=== PATIENT | female | born 1955 | race Caucasian/White ===

== ENCOUNTER 2016-10-09 13:39 | Inpatient (IN) | payer OTHER ==
[~2016-10-09] VITALS: Ht 170.2 cm; Wt 71.8 kg
[2016-10-09] MEDS ORDERED: MORPHINE 4 MG/ML 1ML SYRINGE IV ONE (14:00)
[2016-10-09] MEDS ORDERED: ONDANSETRON 4MG/2ML VIAL (J2405) IV ONE (14:00)
[2016-10-09] MEDS ORDERED: NS 1,000 ML IV ONE (14:00)
[2016-10-09] MEDS ORDERED: CALC500T36 PO (14:02)
[2016-10-09] MEDS ORDERED: VITATAB74 PO (14:02)
[2016-10-09] MEDS ORDERED: VITA100T20 PO (14:02)
[2016-10-09] MEDS ORDERED: PROZ40CA PO (14:02)
[2016-10-09 14:06] LABS: BASO % 0.4 % (0.0-1.0); EOS # 0.1 K/mm3 (0.0-0.50); EOS % 2.3 % (0.0-3.0); LARGE UNSTAINED CELL # 0.1 K/mm3 (0.0-0.4); LARGE UNSTAINED CELL % 2.2 % (0.0-4.0); LYMPH # 1.2 K/mm3 (1.5-4.5); LYMPH % 20.6 % (24.0-44.0); MEAN CORPUSCULAR HEMOGLOBIN 32.6 pg (27.0-33.0); MEAN CORPUSCULAR HGB CONC 34.4 g/dl (32.0-36.5); MEAN CORPUSCULAR VOLUME 94.9 fl (80.0-96.0); MONO # 0.2 K/mm3 (0.0-0.8); MONO % 4.1 % (0.0-5.0); NEUTROPHILS # 3.6 K/mm3 (1.8-7.7); NEUTROPHILS % 70.4 % (36.0-66.0); PLATELET COUNT, AUTOMATED 259 k/mm3 (150-450); RED CELL DISTRIBUTION WIDTH 12.1 % (11.5-14.5); WHITE BLOOD COUNT 5.1 K/mm3 (4.0-10.0)
[2016-10-09 14:10] LABS: INR 0.91
[2016-10-09] MEDS ORDERED: VITA-122 PO (14:34)
[2016-10-09] MEDS ORDERED: CALC600T31 PO (14:34)
[2016-10-09] MEDS ORDERED: ALEV220T22 PO (14:34)
[2016-10-09 14:35] LABS: ALBUMIN 3.9 GM/DL (3.2-5.2); ALBUMIN/GLOBULIN RATIO 1.34 (1.00-1.93); ALKALINE PHOSPHATASE 79 U/L (45-117); ALT/SGPT 21 U/L (12-78); ANION GAP 8 MEQ/L (8-16); AST/SGOT 17 U/L (15-37); BILIRUBIN,DIRECT 0.1 MG/DL (0.0-0.2); BILIRUBIN,TOTAL 0.5 MG/DL (0.2-1.0); BLOOD UREA NITROGEN 13 MG/DL (7-18); CARBON DIOXIDE LEVEL 27 MEQ/L (21-32); CHLORIDE LEVEL 105 MEQ/L (98-107); CREATININE FOR GFR 0.74 MG/DL (0.55-1.02); GLOMERULAR FILTRATION RATE > 60.0 (>45); GLUCOSE, FASTING 119 MG/DL (80-110); POTASSIUM SERUM 3.9 MEQ/L (3.5-5.1); SODIUM LEVEL 140 MEQ/L (136-145); TOTAL PROTEIN 6.8 GM/DL (6.4-8.2)
--- NOTE | 2016-10-09 14:56 | REP ---
REASON: Trauma. COMPARISON: None. There is a comminuted proximal femoral fracture. There are degenerative changes seen involving the hips. Signed by Travis Tejada DO 10/09/2016 03:14 P
--- NOTE | 2016-10-09 14:57 | REP ---
REASON: Trauma. There is a comminuted proximal right femoral fracture. There are no additional fractures involving the right femur. Signed by Travis Tejada DO 10/09/2016 03:14 P
--- NOTE | 2016-10-09 14:59 | REP ---
REASON: Pain after trauma. AP and cross table lateral views were obtained. There is a comminuted proximal femoral fracture. There are degenerative changes. Signed by Travis Tejada DO 10/09/2016 03:14 P
--- NOTE | 2016-10-09 15:01 | REP ---
REASON: Pain after trauma. PRIORS: None. FINDINGS: The technique utilized in obtaining the radiograph has magnified the cardiac silhouette and accentuated the interstitial markings. The superior mediastinal structures are midline. The cardiac silhouette is unremarkable in size, shape, and position. The diaphragmatic surfaces of the lungs are regular, and the costophrenic angles are clear. The pulmonary cardenas are clear. The imaged osseous structures are intact. IMPRESSION: There is no acute cardiopulmonary disease. Signed by Travis Tejada DO 10/09/2016 03:14 P
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
[2016-10-09] MEDS ORDERED: MORPHINE 2 MG/ML 1ML SYRINGE As Ordered ONE (17:37)
[2016-10-09] MEDS ORDERED: ACETAMINOPHEN TAB 650MG DOSE (2X325MG) PO PRN (17:45)
[2016-10-09] MEDS ORDERED: MORPHINE 2 MG/ML 1ML SYRINGE IV PRN (17:45)
[2016-10-09] MEDS ORDERED: ONDANSETRON 4MG/2ML VIAL (J2405) IV PRN (17:45)
[2016-10-09] MEDS ORDERED: PERCOCET 5MG/325MG TAB PO PRN (17:45)
[2016-10-09] MEDS ORDERED: NS 1,000 ML IV SCH (18:00)
--- NOTE | 2016-10-09 19:34 | ECGEPIP ---
Stationary ECG Study 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
[2016-10-09 20:00] VITALS: BP 140/63
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
[2016-10-09] MEDS ORDERED: PANTOPRAZOLE 40MG INJ (PROTONIX) (C9113) IV SCH (21:00)
[2016-10-09] MEDS ORDERED: ceFAZolin 1GM INJ (J0690) As Ordered ONE (22:54)
[2016-10-09] MEDS ORDERED: PROPOFOL 200 MG/20 ML VIAL As Ordered ONE (23:08)
[2016-10-09] MEDS ORDERED: BUPIVACAINE HCL 0.5% 30 ML VIAL As Ordered ONE (23:08)
[2016-10-09] MEDS ORDERED: MIDAZOLAM INJ 2 MG/2 ML VIAL (J2250) As Ordered ONE (23:08)
[2016-10-09] MEDS ORDERED: fentaNYL 100 MCG/2 ML INJECTION (J3010) As Ordered ONE (23:08)
[2016-10-09] MEDS ORDERED: ONDANSETRON 4MG/2ML VIAL (J2405) As Ordered ONE (23:08)
[2016-10-09] MEDS ORDERED: KETAMINE HCL 200 MG/20 ML VIAL As Ordered ONE (23:08)
[2016-10-09] MEDS ORDERED: LIDOCAINE 2% INJ 100 MG/5 ML SDV (FOR ANES.) As Ordered ONE (23:09)
[2016-10-09] MEDS ORDERED: ceFAZolin 2 GM/D5W 50 ML IV BAG (J0690) As Ordered ONE (23:16)
[2016-10-10] MEDS ORDERED: PHENYLephrine HCL 500 MCG/5 ML (100MCG/ML) SYRINGE (J2370) As Ordered ONE (00:21)
[2016-10-10] MEDS ORDERED: PERCOCET 5MG/325MG TAB PO PRN ×3 (00:45→01:00)
[2016-10-10] MEDS ORDERED: ONDANSETRON 4MG/2ML VIAL (J2405) IV PRN (01:00)
[2016-10-10] MEDS ORDERED: fentaNYL 100 MCG/2 ML INJECTION (J3010) IV PRN (01:00)
[2016-10-10] MEDS ORDERED: LR 1,000 ML IV SCH (01:00)
[2016-10-10] MEDS ORDERED: METOCLOPRAMIDE INJ 10MG/2ML VIAL (J2765) IV PRN (01:00)
[2016-10-10] MEDS ORDERED: MEPERIDINE INJ 25 MG/ML VIAL (J2175) IV PRN (01:00)
[2016-10-10 01:30] VITALS: BP 145/66
[2016-10-10] MEDS: KETOROLAC 30 MG/ML VIAL (J1885) IV SCH ×2 (01:49→06:38)
[2016-10-10 02:00] VITALS: BP 140/68
[2016-10-10 03:00] VITALS: BP 116/55
[2016-10-10 04:00] VITALS: BP 101/55
[2016-10-10 05:00] VITALS: BP 106/52
[2016-10-10 06:00] VITALS: BP 109/53
[2016-10-10 06:01] LABS: MEAN CORPUSCULAR HEMOGLOBIN 33.3 pg (27.0-33.0); MEAN CORPUSCULAR VOLUME 98.1 fl (80.0-96.0); WHITE BLOOD COUNT 6.2 K/mm3 (4.0-10.0)
[2016-10-10 06:11] LABS: ANION GAP 8 MEQ/L (8-16); BLOOD UREA NITROGEN 11 MG/DL (7-18); CARBON DIOXIDE LEVEL 26 MEQ/L (21-32); CHLORIDE LEVEL 107 MEQ/L (98-107); CREATININE FOR GFR 0.84 MG/DL (0.55-1.02); GLOMERULAR FILTRATION RATE > 60.0 (>45); GLUCOSE, FASTING 149 MG/DL (80-110); MAGNESIUM LEVEL 1.9 MG/DL (1.8-2.4); POTASSIUM SERUM 3.8 MEQ/L (3.5-5.1); SODIUM LEVEL 141 MEQ/L (136-145)
[2016-10-10] MEDS ORDERED: LOVE1INJ SC (08:32)
[2016-10-10] MEDS ORDERED: PERC5TAB12 PO (08:32)
[2016-10-10] MEDS ORDERED: ENOXAPARIN 40 MG/0.4 ML SYRINGE (J1650) SC SCH (09:00)
[2016-10-10] MEDS ORDERED: VITAMIN D 1,000 INTERNATIONAL UNITS TABLET PO SCH (09:00)
[2016-10-10] MEDS ORDERED: MIRALAX *UNIT DOSE* 17GM PACKET PO SCH (09:00)
[2016-10-10] MEDS ORDERED: MOM 30ML SUSPENSION UDC PO SCH (09:00)
[2016-10-10] MEDS ORDERED: FLUoxetine 20 MG CAP PO SCH (09:00)
--- NOTE | 2016-10-10 10:18 | REP ---
Clinical: Fracture fixation. Technique: Intraoperative fluoroscopic evaluation. Findings: Multiple intraoperative fluoroscopic images demonstrate the patient to be status post intramedullary fabricio placement for intertrochanteric femoral neck fracture. Satisfactory fixation and reduction noted. Total fluoroscopic time 2 minutes 30 seconds. Impression: Status post open reduction and fixation for intertrochanteric right hip fracture. Signed by Geovanny Tejada MD 10/10/2016 04:14 A
--- NOTE | 2016-10-10 11:26 | RO ---
DATE OF PROCEDURE: 10/10/2016 PREOPERATIVE DIAGNOSIS: Right proximal femur intertrochanteric fracture. POSTOPERATIVE DIAGNOSIS: Right proximal femur intertrochanteric fracture. PROCEDURE PERFORMED: Right hip cephalomedullary nail fixation. SURGEON: Marco A Ranadll MD [employer] COACH: ALISA Brower ANESTHESIA PROVIDER: Dr. Drew ANESTHESIA GIVEN: Spinal anesthesia ANTIBIOTICS: 2 grams Ancef given within 1 hour of incision IMPLANT USED: Synthes TFNA 11 mm x 200 mm nail with a 90 mm Helical blade and 5 mm x 32 mm interlocking screw. COMPLICATIONS: None. ESTIMATED BLOOD LOSS: 100 mL. MATERIALS SENT TO LABORATORY: None. INDICATION FOR PROCEDURE: Carla Choi is a 61-year-old female who was here on vacation visiting family. Lives in the [facility] area. Sustained a mechanical fall from standing height, resulting in a right proximal femur fracture. The patient is normally a community ambulator at baseline and otherwise very physically active. Given the nature of the injury, I recommended surgical treatment prior to the patient's return home. I counseled her on the risks, benefits, indications, and alternatives of operative versus nonoperative treatment. The patient and the family all elected to proceed with right hip cephalomedullary nail fixation. The patient understands that I will be her operating surgeon, but she will need to arrange followup closer to her home. I told the patient that I will be able to arrange followup for her in [place], if necessary. The patient expressed understanding and provided informed consent for right hip open versus closed reduction and internal fixation. INTRAOPERATIVE FINDINGS: Unstable intertrochanteric femur fracture that was stable after fixation. DESCRIPTION OF PROCEDURE: The patient was positively identified in the preoperative holding area where the surgical site was marked. She was then brought to the operating room where she was given spinal anesthesia. She was then positioned supine on the fracture table with all bony prominences appropriately padded. Sequential compression device (SCD) was placed on the nonoperative extremity for deep venous thrombosis (DVT) prophylaxis. I took picker machine operator fluoroscopic images to obtain a closed reduction. She was then prepped and draped in the usual sterile fashion. A final time-out was performed. I made a 3 cm incision about three fingerbreadths proximal to the tip of the greater trochanter. I dissected through skin and subcutaneous tissue, and I introduced the 3.2 mm starting guidepin in the tip of the greater trochanter. There was some posterior sag of the distal fragment; therefore, I made an accessory lateral incision to introduce a periosteal elevator and a bone hook to obtain and maintain reduction. After this was obtained, the starting guidepin was then introduced to the level of the level of the lesser trochanter, and this was followed by the opening reamer. After the opening reamer, the patient was noted to have a relatively tight femoral canal, given her age and [place] A type bone. Therefore, I passed a 12 mm reamer down the shaft of the femur to aid in nail placement after placement of a guidewire. I then introduced the 11 x 200 mm nail. This was brought to an appropriate depth using fluoroscopic guidance, the fracture was noted to be near anatomic alignment after placement of the nail. I then used the second 3.2 mm guidepin in the femoral neck using the guide for placement of the Helical blade. The guidepin was center-center on the femoral neck on AP and lateral imaging. It was then measured to a depth of 90 mm. The drill for the Helical blade was introduced to a depth of 90 mm. The blade was then placed in standard fashion. This was then followed by locking the nail to create a fixed angle construct, given the reverse oblique nature of the fracture. After this, the 32 mm x 5 mm interlocking screw was placed in the distal aspect of the nail. After all hardware was placed, final fluoroscopic images were taken. I confirmed there was no penetration of the blade through the femoral head with sequential imaging. The wounds were then thoroughly irrigated with normal saline and closed in layers with #2-0 Vicryl for the subcutaneous layer and sera for the skin. Sterile dressings were applied. This ended the procedure. I was present and scrubbed in for all critical portions of the case. POSTOPERATIVE PLAN: The patient will be weightbearing as tolerated in the right lower extremity. She will undergo physical therapy tomorrow. Lovenox for DVT prophylaxis, which she will do for at least 4 weeks. She will be discharged when criteria met. I will arrange for the patient to followup with me if she remains in town. However, she will likely travel home prior to her followup appointment. MAINOR
--- NOTE | 2016-10-10 21:14 | REP ---
Right hip two views: 10/10/2016: Comparison: Intraoperative C-arm images right hip 10/09/2016, acute fracture series 10/09/2016. Findings: The proximal femoral fracture of the subtrochanteric region extending into the lesser trochanter with at least three major fragments is reduced with ORIF showing a blade paddle focus and short intramedullary fabricio with single screw transfixing it into the proximal femoral shaft. Alignment is essentially anatomic. There are degenerative changes of that hip. Skin sera and other postoperative changes are noted from this immediate postop exam. Signed by Cheng Heredia MD 10/10/2016 09:36 P
--- NOTE | 2016-10-11 10:31 | DSES ---
DATE OF ADMISSION: 10/09/2016 DATE OF DISCHARGE: 10/10/2016 DISCHARGE DIAGNOSIS: 1. Right proximal femur intertrochanteric fracture. SECONDARY DIAGNOSIS: 1. Mechanical fall. 2. Calcium vitamin D deficiency 3. B12 deficiency 4. Mood disorder. HOSPITAL COURSE: The patient is a 61-year-old female who has suffered a mechanical fall while trying to exit her car. She landed on her right hip. She was seen by Dr. Randall of orthopedic surgery and taken to the operating room shortly admission overnight 7:30:17. The patient tolerated operating repair of her femur quite well. She did have some anemia following procedure as was expected. She was seen the next day by physical therapy, who did clear her. She is from [place] and wishes to followup there. SUBJECTIVE: This morning the patient reports that she feels well and has no complaints. She denies any chest pain, shortness of breath, fevers, chills, nausea, vomiting or diarrhea. She was ready to go home. OBJECTIVE: VITAL SIGNS: Temperature 98.5, pulse 59, respiratory rate, blood pressure 109/53, oxygen saturation 96% on room air. GENERAL: She is a pleasant, female lying flat in bed in no acute distress. HEENT: Cranial nerves II/XII intact are grossly intact. She has moist mucous membranes. No elevation of central venous pressure (CVP). CARDIOVASCULAR EXAM: S1, S2 regular. RESPIRATORY EXAM: Clear. ABDOMINAL EXAM: Benign. EXTREMITIES: Her dressing is clean, dry and intact. Extremities, no clubbing, cyanosis or edema. LABORATORY STUDY: White blood count (WBC) 6.2, hemoglobin 9.4, platelet count 188. Chemistry panel: Sodium 141, potassium 3.8, chloride 107, bicarbonate 26, BUN 11, creatine 0.8. 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 PROBLEMS: 1. Femur fracture postoperative day 1. The patient tolerated the procedure well. She has been cleared by physical therapy. She wishes to go home. Will arrange for her to followup in [place] as she is going back; she is only here visit. She has been discharged with Lovenox daily for four weeks and Percocet for pain as per orthopedic surgery. They have cleared her for discharge. 2. Calcium vitamin D deficiency. Continue with supplementation. She should likely be seen regarding osteoporosis for a likely fragility fracture by her primary care provider in [place]. 3. B12 deficiency. Continue supplementation. 4. Mood disorder. Continue with fluoxetine. DISPOSITION: The patient is being discharged home to the care of daughter, who is a physical therapist. She should followup with an orthopedic surgeon in [place]. Orthopedic surgery will arrange for transfer of records. She is weight bearing as tolerated. Diet is as tolerated. Optifoam to provide additional one for dressing changes in 7 days. She is to shower. MEDICATIONS AT THE TIME OF DISCHARGE: - Lovenox 40 mg subcutaneously daily for 28 days - Percocet 5-325 mg one to two tabs every 4 hours as needed for pain, not to exceed 8 per day, 40 tablets. - calcium 600 mg daily - vitamin D 1000 units daily - b12 daily - fluoxetine 40 mg daily Greater than 30 minutes spent organizing disposition.
== END 2016-10-10 12:00 | disposition home or self-care (01) | DRG 482 ==
LOC: EDBD 13:39 → M ED 13:39 → M SDC 15:11 → M MS5PR 17:31 → M SDC 20:00 → M MS5PR 20:00 → M SDC 10-10 12:00
PROVIDERS: ADMIT Internal Medicine; ATTEND Internal Medicine
PROC: 0QS604Z Reposition Right Upper Femur with Internal Fixation Device, Open Approach (ICD-10-PCS; principal; 2016-10-09 21:00)
DX: S72.141A Displaced intertrochanteric fracture of right femur, initial encounter for closed fracture (principal); W18.09XA Striking against other object with subsequent fall, initial encounter; Y92.481 Parking lot as the place of occurrence of the external cause; E53.8 Deficiency of other specified B group vitamins; F39 Unspecified mood [affective] disorder; E55.9 Vitamin D deficiency, unspecified; D64.9 Anemia, unspecified; Z79.899 Other long term (current) drug therapy; Y99.8 Other external cause status; Y93.9 Activity, unspecified